=== PATIENT | female | born 1960 | race Caucasian/White ===

== ENCOUNTER → 2017-01-23 | Outpatient (CLI) | payer MEDICAID ==
[2017-01-23] VITALS (15 sets, daily range): BP systolic 97–137; BP diastolic 60–99; PULSE 67–89
[~2017-01-23] VITALS: Ht 157.5 cm; Wt 57.7 kg
[~2017-01-23] MED LIST: COLACE 100100 MG/CAP PO; DAZIDOX10 MG PO; DOXYCYCLINE 10100 MG PO; LEVAQUIN 5500 MG/TA1 PO; MS CONTIN 115 MG/TAB PO; NAPROSYN 2250 MG/TAB PO; NEURONTIN100 MG/CAP PO; NICOTROL I420 MG/42 IH; OXYCONTIN 10MG10 MG PO; PREDNISONE10 MG PO; VITAMIN E 400 U4001 PO; ZOFRAN 4MG T4 MG/TAB PO; tumeric PO
== END ==
LOC: COL.RAD 11:38
DX: C34.31 Malignant neoplasm of lower lobe, right bronchus or lung (principal)
CPT/HCPCS: J2250; J3010

== ENCOUNTER 2017-05-12 14:28 | Inpatient (IN) | payer BC, MEDICAID ==
[~2017-05-12] VITALS: Ht 157.5 cm; Wt 52.7 kg
[~2017-05-12 14:28] MED LIST changes: -COLACE 100100 MG/CAP PO; -DAZIDOX10 MG PO; -DOXYCYCLINE 10100 MG PO; -LEVAQUIN 5500 MG/TA1 PO; -MS CONTIN 115 MG/TAB PO; -NAPROSYN 2250 MG/TAB PO; -NEURONTIN100 MG/CAP PO; -NICOTROL I420 MG/42 IH; -OXYCONTIN 10MG10 MG PO; -PREDNISONE10 MG PO; -ZOFRAN 4MG T4 MG/TAB PO
[2017-05-12] MEDS ORDERED: OXYCONTIN 10MG10 MG PO (15:24)
[2017-05-12] MEDS ORDERED: DAZIDOX10 MG PO (15:28)
[2017-05-12] MEDS ORDERED: ZOFRAN 4MG T4 MG/TAB PO (15:29)
[2017-05-12] MEDS ORDERED: LEVAQUIN 5500 MG/TA1 PO (15:30)
[2017-05-12] MEDS ORDERED: COLACE 100100 MG/CAP PO (15:44)
[2017-05-12 15:47] VITALS: BP 115/71; PULSE 76; TEMP 97.9
[2017-05-12 16:45] LABS: BASO % 0.6 % (0.0-2.0); EOS # 0.1 (0.0-0.7); EOS % 1.6 % (0-4.0); GRAN # 3.3 (1.4-6.5); LYMPH # 1.1 (1.2-3.4); LYMPH % 22.1 % (20.0-51.0); MEAN CELL VOLUME 97 fl (80.0-100.0); MEAN CORPUSCULAR HGB CONC 34 g/dl (33.0-37.0); MEAN PLATELET VOLUME 9.2 fl (7.4-10.4); MONO # 0.6 (0.1-0.6); MONO % 11.5 % (1.7-9.3); PLATELET COUNT 457 K/mm3 (130-400); REDCELL DISTRIBUTION WIDTH-CV 14.6 % (11.5-14.5); WHITE BLOOD COUNT 5.1 K/mm3 (4.8-10.8)
[2017-05-12 16:48] LABS: ADJUSTED CALCIUM 9.6 mg/dL (8.4-10.2); ALBUMIN 3.3 gm/dL (3.5-5.0); BILIRUBIN,TOTAL 0.5 mg/dL (0.0-1.0); CREATININE, serum 0.53 mg/dL (0.52-1.25); POTASSIUM 3.9 mmol/L (3.4-5.0); TOTAL PROTEIN 6.7 gm/dL (6.4-8.2)
[2017-05-12 17:00] LABS: HEMATOCRIT 28.2 % (37.0-47.0); HEMOGLOBIN 9.5 g/dl (12.5-16.0); MEAN CORPUSCULAR HEMOGLOBIN 33 pg (27.0-31.0)
[2017-05-12 19:45] VITALS: BP 115/63; PULSE 102; TEMP 98.3
[2017-05-13] VITALS (10 sets, daily range): BP systolic 107–138; BP diastolic 57–83; PULSE 64–117; TEMP 98–98.7
[2017-05-14] VITALS (9 sets, daily range): BP systolic 118–156; BP diastolic 70–87; PULSE 62–83; TEMP 97.8–98.5
[2017-05-14 14:12] LABS: PH 6 (5-8); SQUAMOUS EPITHELIAL 0-2 /hpf; URINE APPEARANCE Clear; URINE BACTERIA Rare /hpf; URINE BILIRUBIN Negative (NEGATIVE); URINE BLOOD Negative (NEGATIVE); URINE COLOR Yellow; URINE GLUCOSE Negative (NEGATIVE); URINE KETONE Trace (NEGATIVE); URINE RBC 0-2 /hpf; URINE UROBILINOGEN Negative (NEGATIVE); URINE WBC 0-2 /hpf
[2017-05-15 02:27] VITALS: BP 110/61; PULSE 51; TEMP 97.9
[2017-05-15 07:04] LABS: MEAN CELL VOLUME 99 fl (80.0-100.0); MEAN CORPUSCULAR HGB CONC 33 g/dl (33.0-37.0); MEAN PLATELET VOLUME 9.6 fl (7.4-10.4); PLATELET COUNT 455 K/mm3 (130-400); RED BLOOD COUNT 2.87 M/mm3 (4.10-5.30); REDCELL DISTRIBUTION WIDTH-CV 14.9 % (11.5-14.5); WHITE BLOOD COUNT 12.7 K/mm3 (4.8-10.8)
[2017-05-15 07:18] LABS: CALCIUM 9.2 mg/dL (8.4-10.2); CREATININE, serum 0.46 mg/dL (0.52-1.25); POTASSIUM 3.8 mmol/L (3.4-5.0)
[2017-05-15 07:26] LABS: ADD PATHOLOGY DIFF REVIEW NO; HEMATOCRIT 28.5 % (37.0-47.0); HEMOGLOBIN 9.4 g/dl (12.5-16.0); MEAN CORPUSCULAR HEMOGLOBIN 33 pg (27.0-31.0)
[2017-05-15 08:37] VITALS: BP 140/86; PULSE 121; TEMP 97.3
[2017-05-15 08:57] VITALS: BP 140/86; PULSE 121
[2017-05-15 11:49] VITALS: BP 151/72; PULSE 54; TEMP 97.9
[2017-05-15 12:23] LABS: ANISOCYTOSIS 1+; BAND 6 % (0-10); MYELOCYTE 1 % (0-0); NEUTROPHILS 87 % (42.0-75.2); PLATELET ESTIMATE INCREASED (NORMAL); TOTAL CELLS COUNTED 100; TOXIC GRANULATION PRESENT
[2017-05-15 12:25] LABS: OVALOCYTES 1+
[2017-05-15 15:58] VITALS: BP 127/74; PULSE 50; TEMP 98.3
[2017-05-15 20:47] VITALS: BP 147/77; PULSE 54; TEMP 98.3
[2017-05-16 03:02] VITALS: BP 151/79; PULSE 59; TEMP 98
[2017-05-16 08:31] VITALS: BP 134/81; PULSE 56; TEMP 98.5
[2017-05-16] MEDS ORDERED: DOXYCYCLINE 10100 MG PO (09:03)
[2017-05-16] MEDS ORDERED: NAPROSYN 2250 MG/TAB PO (09:03)
[2017-05-16] MEDS ORDERED: NEURONTIN100 MG/CAP PO (09:04)
[2017-05-16] MEDS ORDERED: MS CONTIN 115 MG/TAB PO (09:05)
[2017-05-16] MEDS ORDERED: PREDNISONE10 MG PO (09:08)
[2017-05-16] MEDS ORDERED: NICOTROL I420 MG/42 IH (09:11)
[2017-05-16] MEDS ORDERED: ZOFRAN 4MG T4 MG/TAB PO (09:37)
== END 2017-05-16 10:44 | disposition home or self-care (01) | DRG 546 ==
LOC: MEDICAL 14:28
PROVIDERS: Family Medicine; Physician Assistant
DX: M35.9 Systemic involvement of connective tissue, unspecified (principal); R04.2 Hemoptysis; C34.31 Malignant neoplasm of lower lobe, right bronchus or lung; C79.31 Secondary malignant neoplasm of brain; M54.6 Pain in thoracic spine; T45.1X5A Adverse effect of antineoplastic and immunosuppressive drugs, initial encounter; T50.8X5A Adverse effect of diagnostic agents, initial encounter; F17.210 Nicotine dependence, cigarettes, uncomplicated; J44.9 Chronic obstructive pulmonary disease, unspecified; D64.9 Anemia, unspecified; F41.0 Panic disorder [episodic paroxysmal anxiety]; R62.7 Adult failure to thrive
CPT/HCPCS: 99223-AI; 99232-AI; 99233-AI; 99239; J0692; J1170; J1956; J2405; J2550; J2930; J7030; J7070; J7512; Q9967